=== PATIENT | female | born 1965 | race Caucasian/White ===

== ENCOUNTER 2023-10-27 20:23 | Emergency (ER) | payer SELFPAY ==
[~2023-10-27] VITALS: Ht 162.6 cm; Wt 65.0 kg
[2023-10-27 20:29] VITALS: BP 124/85; PULSE 100; RESP 16; TEMP 98.2; O2SAT 98
== END 2023-10-27 20:52 | disposition home or self-care (01) ==
LOC: ER 20:31
DX: Z13.89 Encounter for screening for other disorder (principal); Z59.00 Homelessness unspecified
CPT/HCPCS: 99283